=== PATIENT | male | born 1995 | race African-American/Black ===

== ENCOUNTER 2022-11-11 14:00 | Emergency (ER) | payer BC ==
[~2022-11-11] VITALS: Ht 182.9 cm; Wt 75.0 kg
[2022-11-11 14:20] VITALS: O2SAT 100
[2022-11-11] MEDS ORDERED: ACETAMINOPHEN 325MG TABLET PO ONE (18:30)
[2022-11-11] MEDS ORDERED: TETANUS, DIPHTHERIA, PERTUSSIS VAC/PF 0.5ML (>10YR OLD) IM ONE (18:30)
[2022-11-11] MEDS ORDERED: BACITRACIN ZINC OINT UDPKT TOP ONE (18:30)
[2022-11-11] MEDS ORDERED: LIDOCAINE HCL/EPINEPHRINE 1%-EPI 1:100,000 20 ML VIAL INFIL ONE (18:30)
[2022-11-11 19:42] VITALS: BP 126/81; PULSE 75; RESP 18; TEMP 98.2
== END 2022-11-11 19:43 | disposition home or self-care (01) ==
LOC: ER 14:59
DX: S61.512A Laceration without foreign body of left wrist, initial encounter (principal); W25.XXXA Contact with sharp glass, initial encounter; Y93.89 Activity, other specified; Y92.89 Other specified places as the place of occurrence of the external cause; Y99.8 Other external cause status
CPT/HCPCS: 73110; 90715; 12002; 90471; 99283; J3490; Z7610